=== PATIENT | female | born 1985 | race Two or more races ===

== ENCOUNTER 2025-03-23 18:15 | Emergency (ER) | payer OTHER ==
[~2025-03-23] VITALS: Ht 160 cm; Wt 57.6 kg
[2025-03-23 20:08] LABS: BASO % 0.3 % (0.1-1.2); EOS # 0.27 (0.04-0.54); EOS % 3.5 % (0.7-7.0); LYMPH # 2.21 (1.18-3.74); LYMPH % 28.4 % (19.3-53.1); MEAN PLATELET VOLUME 9.60 fl (9.4-12.4); MONO # 0.52 (0.24-0.82); MONO % 6.7 % (4.7-12.5); NEUT # 4.73 (1.56-6.13); NEUT % 60.8 % (34.0-71.1); RED CELL DISTRIBUTION WIDTH 12.2 % (11.6-14.4)
[2025-03-23 20:36] LABS: INR 1.13
[2025-03-23 20:42] LABS: ALT/SGPT 20.0 U/L (12-78); AST/SGOT 9.0 U/L (15-37); BILIRUBIN TOTAL 0.73 mg/dL (0.3-1.2); BUN CREA RATIO 23.0 (7.0-25.0); CREATININE SERUM 0.64 mg/dL (0.55-1.02); GFR 104.41; GLOBULINA 2.9 G/DL (2.4-3.5); GLUCOSE FASTING 88.0 mg/dL (65-100); OSMOLALITY SERUM 281.0 MOSM/KG (275-295)
[2025-03-23 22:54] VITALS: BP 107/82; O2SAT 99
== END 2025-03-23 22:55 | disposition home or self-care (01) ==
LOC: ER 18:15
PROVIDERS: General Practice
DX: R10.9 Unspecified abdominal pain (principal); K62.5 Hemorrhage of anus and rectum